=== PATIENT | female | born 1990 | race Two or more races ===

== ENCOUNTER 2020-07-06 10:04 | Inpatient (IN) | payer MEDICAID, OTHER ==
[~2020-07-06] VITALS: Ht 175.3 cm; Wt 114.8 kg
[2020-07-06] MEDS ORDERED: ONDANSETRON HCL 4MG/2ML INJ IV STA (10:25)
[2020-07-06] MEDS ORDERED: MORPHINE SULFATE 4 MG/ML CPJ (NOT FOR IM USE) IV STA (10:25)
[2020-07-06] MEDS ORDERED: SODIUM CHLORIDE 0.9% 1,000 ML IV ONE (10:30)
[2020-07-06 11:58] LABS: CHLORIDE 106 mEq/L (98-107)
[2020-07-06 12:00] LABS: PROTHROMBIN TIME 10.2 sec (9.6-11.0)
[2020-07-06 12:21] LABS: B-HCG QUANTITATIVE 37968 mIU/mL (<3)
[2020-07-06 12:36] LABS: BASOPHILS % 0.4 % (0.0-2.0); EOSINOPHILS % 0.7 % (0.0-5.0); HEMATOCRIT. 39.2 % (36.0-48.0); HEMOGLOBIN. 13.3 g/dL (12.0-16.0); MEAN CORPUSCULAR HEMOGLOBIN 32.9 pg (28.0-32.0); MEAN CORPUSCULAR VOLUME 96.7 fL (81.0-99.0); MEAN PLATELET VOLUME 7.4 fl (7.4-10.4); MONOCYTES % 8.5 % (2.0-8.0); NEUTROPHILS % 67.4 % (40.0-76.0); PLATELET 355 x1000/uL (130-400); RED BLOOD CELL COUNT 4.05 mill/uL (4.2-5.4); RED CELL DISTRIBUTION WIDTH 12.8 % (11.6-14.6)
[2020-07-06 13:13] LABS: HCG SCREEN POSITIVE
[2020-07-06] MEDS ORDERED: ACETAMINOPHEN WITH CODEINE 300/30MG TABLET PO PRN (14:30)
[2020-07-06 16:10] VITALS: BP 114/47
[2020-07-06] MEDS ORDERED: DEXT 5%/LACTATED RINGERS 1,000 ML IV SCH (18:00)
[2020-07-06] MEDS: ACETAMINOPHEN WITH CODEINE 300/30MG TABLET PO PRN ×2 (18:58→22:58)
[2020-07-06 20:00] VITALS: BP 104/48
[2020-07-07] VITALS: BP 108/54
[2020-07-07 04:00] VITALS: BP 98/50
[2020-07-07] MEDS: ACETAMINOPHEN WITH CODEINE 300/30MG TABLET PO PRN ×5 (05:16→21:43)
[2020-07-07] MEDS ORDERED: MORPHINE SULFATE 4 MG/ML CPJ (NOT FOR IM USE) IV NR (06:46)
[2020-07-07 08:00] VITALS: BP 106/64
[2020-07-07 12:00] VITALS: BP 100/60
[2020-07-07] MEDS: MISOPROSTOL 200MCG TABLET PO SCH ×2 (12:58→17:02)
[2020-07-07 16:00] VITALS: BP 98/68
[2020-07-07] MEDS: MORPHINE SULFATE 2 MG/ML CPJ (NOT FOR IM USE) IV PRN (18:19)
[2020-07-07] MEDS ORDERED: LACTATED RINGERS 1,000 ML IV SCH (18:30)
[2020-07-07 19:00] VITALS: BP 113/48
[2020-07-07] MEDS: ONDANSETRON HCL 4MG/2ML INJ IV PRN (21:41)
[2020-07-08] VITALS (7 sets, daily range): BP systolic 102–117; BP diastolic 41–68
[2020-07-08] MEDS: ONDANSETRON HCL 4MG/2ML INJ IV PRN ×2 (03:42→08:30)
[2020-07-08] MEDS: MORPHINE SULFATE 2 MG/ML CPJ (NOT FOR IM USE) IV PRN (03:42)
[2020-07-08] MEDS: ACETAMINOPHEN WITH CODEINE 300/30MG TABLET PO PRN (09:24)
[2020-07-08 12:41] LABS: BASOPHILS % 0.7 % (0.0-2.0); HEMATOCRIT. 24.9 % (36.0-48.0); HEMOGLOBIN. 8.8 g/dL (12.0-16.0); LYMPHOCYTES % 30.5 % (20.0-50.0); MEAN CORPUSCULAR HEMOGLOBIN 33.7 pg (28.0-32.0); MEAN PLATELET VOLUME 7.9 fl (7.4-10.4); MONOCYTES % 8.5 % (2.0-8.0); NEUTROPHILS % 59.3 % (40.0-76.0); PLATELET 201 x1000/uL (130-400); RED CELL DISTRIBUTION WIDTH 12.7 % (11.6-14.6)
== END 2020-07-08 19:10 | disposition home or self-care (01) | DRG 564 ==
LOC: ER 10:04 → EDBEDREQ 12:00 → EDBEDREQTM 12:44 → EDBEDREQ 12:44 → ENRESERV 13:33 → 6EST 13:38 → EDBEDREQ 14:02 → EDBEDREQTM 14:02 → ER 15:49
PROVIDERS: ADMIT Obstetrics & Gynecology; ATTEND Obstetrics & Gynecology
DX: O03.9 Complete or unspecified spontaneous abortion without complication (principal); O26.851 Spotting complicating pregnancy, first trimester; Z3A.01 Less than 8 weeks gestation of pregnancy; D62 Acute posthemorrhagic anemia
CPT/HCPCS: 36415; 72195; 74181; 76700; 76801; 76830; 76856; 80053; 84702; 84703; 85025; 86850; 86900; 88305; 99291; J2270; J2405; J7030; J7120; J7121